=== PATIENT | male | born 1955 ===

== ENCOUNTER 2017-11-09 10:42 | Outpatient (CLI) | payer OTHER | END 2017-11-09 10:52 | disposition home or self-care (01) | LOC: SONOGRAMA 10:42 | DX: K76.0 Fatty (change of) liver, not elsewhere classified (principal) ==

== ENCOUNTER → 2018-06-07 | Emergency (ER) | payer OTHER ==
[~2018-06-07] VITALS: Ht 165.1 cm; Wt 74.8 kg
[~2018-06-07] MED LIST: LISINOPRIL-HCT1 EACH; PEPCID20 MG; PREVACID15 MG; SIMVASTATIN10 MG
== END | disposition left against medical advice (07) ==
LOC: ER 14:30
DX: Z53.20 Procedure and treatment not carried out because of patient's decision for unspecified reasons (principal)

== ENCOUNTER 2019-05-05 08:30 | Outpatient (CLI) | payer OTHER | END 2019-05-05 08:44 | disposition home or self-care (01) | LOC: RAD 08:30 → RX STUDY 08:45 | DX: K29.00 Acute gastritis without bleeding (principal); K76.0 Fatty (change of) liver, not elsewhere classified ==

== ENCOUNTER 2021-01-18 10:40 | Outpatient (CLI) | payer OTHER | END 2021-01-18 10:58 | disposition home or self-care (01) | LOC: LAB 10:40 | PROVIDERS: ATTEND Internal Medicine Hematology & Oncology | DX: I10 Essential (primary) hypertension (principal); R74.02 Elevation of levels of lactic acid dehydrogenase [LDH]; K76.89 Other specified diseases of liver; D50.8 Other iron deficiency anemias; D63.8 Anemia in other chronic diseases classified elsewhere; D55.0 Anemia due to glucose-6-phosphate dehydrogenase [G6PD] deficiency; D51.1 Vitamin B12 deficiency anemia due to selective vitamin B12 malabsorption with proteinuria; D72.821 Monocytosis (symptomatic); D51.3 Other dietary vitamin B12 deficiency anemia; E78.2 Mixed hyperlipidemia; K91.2 Postsurgical malabsorption, not elsewhere classified ==

== ENCOUNTER 2021-01-27 10:21 | Outpatient (CLI) | payer OTHER | END 2021-01-27 10:26 | disposition home or self-care (01) | LOC: SONOGRAMA 10:21 | PROVIDERS: ATTEND General Practice | DX: Q61.01 Congenital single renal cyst (principal) ==

== ENCOUNTER → 2021-03-28 11:31 | Outpatient (CLI) | payer OTHER | END | disposition home or self-care (01) | LOC: LAB 11:31 → EDBD 11:31 | PROVIDERS: ATTEND Internal Medicine Hematology & Oncology | DX: D50.8 Other iron deficiency anemias (principal); D51.3 Other dietary vitamin B12 deficiency anemia; D72.821 Monocytosis (symptomatic); D51.1 Vitamin B12 deficiency anemia due to selective vitamin B12 malabsorption with proteinuria; I10 Essential (primary) hypertension; E78.2 Mixed hyperlipidemia; K91.2 Postsurgical malabsorption, not elsewhere classified; R79.89 Other specified abnormal findings of blood chemistry ==